=== PATIENT | female | born 1935 | race Caucasian/White ===

== ENCOUNTER 2020-07-03 05:34 | Emergency (ER) | payer OTHER ==
--- NOTE | 2020-07-03 05:40 | PDOC ---
History of Present Illness - General Chief Complaint: Injury Stated Complaint: FALL - History of Present Illness Initial Comments: 07/03/20 06:05 This 85-year-old woman with a history of HTN/HLD/NIDDM/CHF/dementia/factor V Leiden/gait disorder brought in by ambulance from the [facility] (memory unit) with a history of an unwitnessed fall. This occurred within the patient's living quarters and was not seen by staff. Patient remembers losing her balance and falling, twisting her left forearm. She cannot remember if she hit her head or neck; she also cannot remember if she impacted her hips. Patient's only complaint is left elbow/forearm pain. According to documentation, the patient ambulates with use of a walker Medications as noted below Allergies: Penicillin Non-smoker; no daily alcohol or other recreational drug use Past History - Medical History Allergies/Adverse Reactions: Allergies Allergy/AdvReac Type Severity Reaction Status Date / Time Penicillins Allergy Verified 07/03/20 05:59 Home Medications: Ambulatory Orders Apixaban [Eliquis] 5 mg PO BID 07/03/20 Atorvastatin Ca [Lipitor] 20 mg PO HS 07/03/20 Carvedilol 3.125 mg PO BID 07/03/20 Cholecalciferol (Vitamin D3) [Vitamin D3] 2,000 unit PO DAILY 07/03/20 Docusate Sodium [Docusate 100 mg] 300 mg PO ASDIR 07/03/20 Duloxetine HCl 60 mg PO DAILY 07/03/20 Escitalopram Oxalate [Lexapro -] 15 mg PO DAILY 07/03/20 Famotidine 20 mg PO DAILY 07/03/20 Folic Acid 1 mg PO DAILY 07/03/20 Furosemide 20 mg PO DAILY 07/03/20 Loratadine 10 mg PO DAILY 07/03/20 Metformin HCl [Glucophage] 500 mg PO BID 07/03/20 Multivitamin 1 each PO DAILY 07/03/20 Risperidone 0.5 mg PO DAILY 07/03/20 Sennosides [Senna] 2 tab PO ASDIR 07/03/20 Sitagliptin Phosphate [Januvia] 25 mg PO DAILY 07/03/20 traZODone HCL [Trazodone HCl] 100 mg PO HS 07/03/20 Review of Systems - Review of Systems Able to Perform ROS?: Yes Comments:: 12 point review of systems is negative except for what is noted in the history of present illness *Physical Exam - Physical Exam GENERAL: Elderly female, sleeping but easily arousable oriented to person and place HEAD: Normal with no signs of trauma. EYES: PERRLA, EOMI, sclera anicteric, conjunctiva clear. ENT: Ears normal, nares patent, oropharynx clear without exudates. Dry mucous membranes. NECK: Normal range of motion, supple without lymphadenopathy, JVD, or masses. CHEST WALL: No rib tenderness, crepitus or step-offs palpated LUNGS: Breath sounds equal, clear to auscultation bilaterally. No wheezes, and no crackles. HEART:Regular rate and rhythm, normal S1 and S2 without murmur, rub or gallop. ABDOMEN:.normal bowel sounds No guarding,tenderness or rebound.No masses No distention. EXTREMITIES: Mild tenderness/erythema/mild ecchymosis linear 4 cm area dorsum proximal left forearm; mild pain on flexion and extension of left elbow Mild tenderness to palpation left anterior hip; no shortening or rotation of either leg Bilateral venous stasis changes lower leg; NEUROLOGICAL: Cranial nerves II through XII grossly intact. Normal speech. Limited exam but no obvious of focal neurologic deficit . Medical Decision Making - Medical Decision Making 07/03/20 06:16 This 85-year-old woman with multiple medical problems and dementia, brought in by EMS from memory unit at the [facility] after unwitnessed fall in her living quarters. Patient does not have clear recall of the episode except for losing her balance and falling. She apparently was found conscious; her only complaint now is left forearm/elbow/hip discomfort. Exam is notable for mild tenderness of the left forearm/elbow area as well as the left hip. No obvious external trauma except for linear ecchymosis/erythematous area of the left forearm. Because this was an unwitnessed fall, the patient will have a noncontrast head CT/cervical spine CT to rule rule out intracranial injury/neck fracture. Also, left forearm/elbow/hip will be x-rayed as well as her chest. Case signed out to Dr. Nunes at end of shift 07/03/20 07:01 Discharge - Discharge Information Problems reviewed: Yes Clinical Impression/Diagnosis: Fall, Abrasion of left lower extremity, Abrasion of left arm, Closed head i njury Condition: Stable Disposition: [facility] F[facility] - Follow up/Referral Referrals: Chhaya Rodriguez [Primary Care Provider] - - Patient Discharge Instructions Patient Printed Discharge Instructions: How to Prevent Falls, DI for Abrasion Additional Instructions: Please apply ice to the arm and leg for 20 min on and 20 min off as needed. Please take tylenol as needed for pain. Please return to the ER with any further concerns or complaints. - Post Discharge Activity
[2020-07-03 06:08] VITALS: TEMP 97.9; BMI 31.6
--- NOTE | 2020-07-03 07:15 | PDOC ---
*Physical Exam - Vital Signs Last Vital Signs Temp Pulse Resp BP Pulse Ox 97.9 F 84 16 133/77 95 07/03/20 05:36 07/03/20 05:36 07/03/20 05:36 07/03/20 05:36 07/03/20 05:36 - Physical Exam 07/03/20 08:27 Gen: sleeping, arousable, pleasantly demented heart: +s1s2 reg lungs: cta b/l abd: soft, nd, +distended bladder - put currently urinating in her pampers during the exam, no ecchymosis ext: abrasion with soft tissue swelling tot he L forearm, FROM of the UE, abrasion to the LLE, no active bleeding, chronic venous stasis changes to b/l LE, pulses intact neuro: no focal deficits, pleasantly demented Medical Decision Making - Medical Decision Making 07/03/20 07:14 a/p: 85yo female with an unwitnessed fall at the [facility] -pending ct imaging and xray imaging -pt currently in xray 07/03/20 08:21 xrays reviewed cxr read by rads, elevated r hemidaphragm, no infiltrate b/l hip replacements in place no fx on wet read 07/03/20 08:21 pt still pending transfer to [facility] for ct imaging 07/03/20 08:31 xrays have been reviewed by radiology, no acute fx 07/03/20 08:31 [facility]press arrived for transfer to [facility] for ct imaging 07/03/20 10:01 degenerative changes in c spine and atrophy in brain no acute findings on ct of head or c spine pt stable for dc back to the [facility] Discharge - Discharge Information Problems reviewed: Yes Clinical Impression/Diagnosis: Fall, Abrasion of left lower extremity, Abrasion of left arm, Closed head injury Condition: Stable Disposition: RESIDENTIAL FACILITY - Admission No - Follow up/Referral Referrals: Chhaya Rodriguez [Primary Care Provider] - - Patient Discharge Instructions Patient Printed Discharge Instructions: How to Prevent Falls, DI for Abrasion Additional Instructions: Please apply ice to the arm and leg for 20 min on and 20 min off as needed. Please take tylenol as needed for pain. Please return to the ER with any further concerns or complaints. - Post Discharge Activity
[2020-07-03 09:58] VITALS: BP 150/93; PULSE 83
== END 2020-07-03 12:08 ==
LOC: FER 05:34
DX: S50.812A Abrasion of left forearm, initial encounter (principal); S50.811A Abrasion of right forearm, initial encounter; S09.90XA Unspecified injury of head, initial encounter
CPT/HCPCS: 70450-TC; 71045-TC-FY; 72125-TC; 73070-TC-LT-FY; 73090-TC-LT-FY; 73523-TC-FY; 99285-25

== ENCOUNTER 2020-07-22 07:44 | Emergency (ER) | payer OTHER, BC ==
[2020-07-22 07:49] VITALS: BMI 29.2
[2020-07-22 13:41] VITALS: BP 155/68; PULSE 89; TEMP 98.3
== END 2020-07-22 13:29 | disposition home or self-care (01) ==
LOC: FER 07:44
DX: S09.90XA Unspecified injury of head, initial encounter (principal); W19.XXXA Unspecified fall, initial encounter
CPT/HCPCS: 70450-TC; 72125-TC; 99284-25